=== PATIENT | female | born 1960 | race Caucasian/White ===

== ENCOUNTER → 2023-07-27 13:00 | Outpatient (REF) | payer BC, SELFPAY | LOC: WDC 13:00 | PROVIDERS: ATTENDING PHYSICIAN Family Medicine | DX: Z12.31 Encounter for screening mammogram for malignant neoplasm of breast (principal) | CPT/HCPCS: 77063; 77067 ==

== ENCOUNTER → 2023-08-01 16:33 | Outpatient (REF) | payer BC, SELFPAY | LOC: RAD 16:33 | PROVIDERS: ATTENDING PHYSICIAN Physician Assistant Medical | DX: R05.3 Chronic cough (principal); R06.2 Wheezing | CPT/HCPCS: 71046 ==

== ENCOUNTER → 2023-09-14 14:54 | Outpatient (REF) | payer BC, SELFPAY | LOC: WDC 14:54 | PROVIDERS: ATTENDING PHYSICIAN Surgery; FAMILY PHYSICIAN Family Medicine | DX: N63.20 Unspecified lump in the left breast, unspecified quadrant (principal) | CPT/HCPCS: 76642 ==

== ENCOUNTER → 2024-10-10 13:32 | Outpatient (REF) | payer BC, SELFPAY | LOC: WDC 13:32 | PROVIDERS: ATTENDING PHYSICIAN Obstetrics & Gynecology Gynecology; FAMILY PHYSICIAN Family Medicine | DX: Z78.0 Asymptomatic menopausal state (principal); Z12.31 Encounter for screening mammogram for malignant neoplasm of breast | CPT/HCPCS: 77063; 77067; 77080 ==

== ENCOUNTER → 2024-11-04 15:26 | Outpatient (REF) | payer BC, SELFPAY | LOC: RAD 15:26 | PROVIDERS: ATTENDING PHYSICIAN Nurse Practitioner Family | DX: J18.0 Bronchopneumonia, unspecified organism (principal) | CPT/HCPCS: 71046 ==

== ENCOUNTER 2025-04-05 11:06 | Emergency (ER) | payer BC, SELFPAY ==
[2025-04-05 11:08] VITALS: BP 120/87
[2025-04-05] MEDS: DUONEB 3 ML INH (11:22)
[2025-04-05] MEDS: VENTOLIN NEBULES 7.5 MG INH (11:23)
--- NOTE | 2025-04-05 11:25 | ED.GENMED ---
History of Present Illness
General
Chief Complaint: Breathing Problem
Source: patient and spouse
Exam Limitations: none
Time Seen by Provider: 04/05/25 11:13
History of Present Illness
History of Present Illness:
64-year-old female with increased shortness of breath over the last few weeks. Has been on 2 courses of antibiotics and steroids. Currently on 20 mg of prednisone. Increased shortness of breath overnight. No pleuritic chest pain. No hemoptysis.
No fever. Symptoms are moderate to severe in nature
Past History
Past History
ED Past Medical History: HTN and Hypercholesterolemia
ED Past Surgical History: Other (Lipoma removal)
Social History
Tobacco: Smoker
Alcohol: Occasional
Drug: None
Personal:
Living: with family
Review of Systems
Review of Systems
All Other Systems: Not applicable
Constitutional: Denies fever
Respiratory: Denies hemoptysis
Cardiac: Denies chest pain or syncope
Phy Exam
Physical Exam
Physical Exam:
GENERAL: Alert and oriented. Mildly anxious. Moderately tachypneic at rest
EYE: Orbits normal.
NECK: Supple, no significant adenopathy.
ENT: Pharynx without erythema
CARDIAC: Tachycardic and regular no murmur
LUNGS: Moderate tachypnea. Mildly to moderately breathless. Diffuse expiratory wheezing throughout. Breath sounds are equal. No rales.
ABDOMEN: Soft, without focal tenderness or distention
NEUROLOGICAL: Alert and oriented , grossly non-focal
SKIN: Warm and dry, no rash or lesion, no discoloration, skin intact.
MUSCULOSKELETAL: No edema,no deformity.Good color
PSYCH: Normal and appropriate interaction.
Scores
Heart Failure Risk
Heart Failure Risk Score: Not Applicable
Course
Orders/Labs/Results
Orders:
Orders
04/05/25 11:14
Electrocardiogram (*1) Stat
Reason for Study: Other
Other Reason for Exam: chest pain
Cardiac Monitoring- Treatment ONCE
EKG- Treatment ONCE
IV Insert/Care/Rem.- Treatment PRN
Pulse Ox/cont/shift [RESP] Stat
Quantity: 1
04/05/25 11:19
IV Insert/Care/Rem.- Treatment PRN
Albuterol Sulfate [Ventolin Nebules] 7.5 mg INH R NOW STA
Dexamethasone Sod Phosphate [Decadron] 10 mg IV NOW STA
Ipratropium/Albuterol Sulfate [Duoneb] 3 ml INH R NOW STA
CXR Port [CR Chest Portable - 1 View] Urgent
Comment:
Reason For Exam: sob
Reason Study Needs to be Portable: Patient Unstable
04/05/25 11:34
Basic Metabolic Panel Urgent
COVID-19 Antigen Urgent
Source: Nasal Swab
Complete Blood Count/With Diff Urgent
NT-proBNP Urgent
Troponin I Urgent
Influenza A+B Rapid Molecular Urgent
FRANCISCO Source: Nasal Swab
Specimen Description:
Abnormal Lab Results
04/05/25
11:34
Absolute Monos (auto) 0.7 H 10^3/uL
(0.1-0.6)
Absolute Eos (auto) 1.9 H 10^3/uL
(0-0.7)
Eosinophils % 17.3 H %
(0-6)
Calcium 10.3 H mg/dl
(8.4-10.2)
04/05/25 11:34
04/05/25 11:34
Vital Signs
Initial and Last Documented VS:
Initial Vital Signs
Temp Pulse Resp BP Pulse Ox
98.1 F 111 22 120/87 93
04/05/25 11:08 04/05/25 11:08 04/05/25 11:08 04/05/25 11:08 04/05/25 11:08
Last Documented Vital Signs
Temp Pulse Resp BP Pulse Ox
99.0 F 107 22 118/84 94
04/05/25 16:01 04/05/25 15:45 04/05/25 15:45 04/05/25 15:00 04/05/25 15:45
MDM/Problems Addressed
Differential Diagnosis Includes:
Respiratory distress.
*Radiology
Radiology exam reviewed: radiology read reviewed (No acute findings)
*Pulse Oximetry
SaO2: 93
Oxygen Mode of Delivery: Room air
Patient hypoxic: no
*EKG
Interpreted by ED Provider?: Yes
Interpretation: abnormal
Comparison EKG: changes noted
Heart Rate: 101
Rate: tachycardiac
Rhythm: sinus
[place]: normal axis
Interval: normal interval
QRS Pattern: normal QRS
Ischemia: non-specific ST changes
*Credit Review Officer Interpretation
Rate: normal
Interpretation: normal
Heart Rate: 94
*Critical Care Note
Total Time (30-74mins, 75-104mins- exclusive of procedures): Not Applicable
Data Reviewed
Review of Other/Old Records Reveals: Labs, Records and Radiology Studies
Update Note
Update Note:
1140... Patient rechecked and actually doing much better. Wheezing much improved. Continues nebulizer
1615... Patient rechecked multiple times. On current recheck she remains and appears well. She is in 0 respiratory distress. She is not tachypneic. She is not pursed lip breathing. Her speech is normal. Lungs actually sound relatively clear.
No retractions. Pulse ox 93 to 97%. Discussed admission versus outpatient management. Offered admission although outpatient management is reasonable. Patient will be discharged to follow-up
ED Attending Note
-
Portions of this chart may have been created with voice recognition software.� Occasional wrong word or��sound alike� substitutions may have occurred due to the inherent limitations of voice recognition software.
Discharge Plan
Departure
Patient Disposition: Home (Routine Discharge)
Date of Disposition: 04/05/25
Time of Disposition: 16:14
Patient with high blood pressure during this ER visit?: Yes
Discharge Problem:
Respiratory distress, Reactive airway disease
Instructions: Shortness of Breath (Dyspnea) (DC), BLOOD PRESSURE
Prescriptions:
New
prednisone 10 mg tablet
10 mg PO DAILY Qty: 30 0RF
Rx Instructions:
5 tablets day 1. Then 1 less tablet every third day until gone
Asmanex Twisthaler 110 mcg/ actuation (30) aerosol powdr breath activated
2 inh inhalation DAILY Qty: 1 0RF
No Action
multivitamin [Daily Multiple] 1 EACH tablet
1 ea PO DAILY
ascorbic acid (vitamin C) [Vitamin C] 500 MG tablet
500 mg PO DAILY
calcium carbonate [Antacid (calcium carbonate)] 1 TABLET tablet,chewable
2 tab PO Q4HPRN PRN (Reason: pain)
Patient Comments:
took within the hr prior to coming in hospital today
venlafaxine 50 MG tablet
150 mg PO DAILY
bismuth subsalicylate [Ozora Bismuth] 1 TABLET tablet,chewable
2 tab PO PRN PRN (Reason: pain)
Patient Comments:
took within the hr prior to coming in hospital today
Gas-X
1 tab PO PRN PRN (Reason: pain)
Patient Comments:
took within the hr prior to coming in hospital today
Ibuprofen
2 tab PO PRN PRN (Reason: CRABTREE)
Klonopin:
PO HS
Losartan
0.5 mg PO QPM
Melatonin
HS
Metformin Hcl
2 tab PO BID
Patient Comments:
Pt does not know doses of most meds
Simvastatin
PO QPM
doxycycline hyclate 100 MG capsule
100 mg PO Q12 Qty: 14 0RF
Referrals:
Alejandro Espinoza MD [Family Provider, [facility]]
Norman Hale MD [Active, Pulmonary Medicine] - Next open appointment
Activity Restrictions/Additional Instructions:
Your prescriptions were sent to your pharmacy
Continue your albuterol inhaler every 3-4 hours
Close follow-up with your primary physician
I gave you the name of a forest officer to follow-up
Return immediately with any concerning or progression of symptoms
Interventions
Interventions:
*Risk Screen - Suicide Last Done: 04/05/25 11:08
*General Assessment Last Done: 04/05/25 11:38
*Neglect/Abuse Screening Last Done: 04/05/25 11:08
*ED- Fall Risk Assessment Last Done: 04/05/25 11:38
*ED COVID-19 Vaccine History Last Done: 04/05/25 11:38
*ED Influenza Vaccine History Last Done: 04/05/25 11:38
*Nursing Disposition Last Done: 04/05/25 16:23
ED- Cardiac Assessment Last Done: 04/05/25 11:41
ED- Pulmonary Assessment Last Done: 04/05/25 11:41
Discharge Date and Time
Discharge Date/Time: 04/05/25 16:24
Print Language: [id number]
[2025-04-05 11:26] VITALS: BP 138/93
[2025-04-05] MEDS: DECADRON 10 MG IV (11:31)
[2025-04-05 11:36] VITALS: BMI 25.4
[2025-04-05 11:48] LABS: Hematocrit 41.4 % (37.0-47.0); Hemoglobin 13.9 g/dL (12.0-16.0); Mean Corp Hgb Conc. 33.6 g/dL (33.0-37.0); Mean Corpuscular Volume 88.8 fL (81.0-99.0); Nucleated Red Blood Cells % 0 %; Platelet Count 386 10^3/uL (130-400); Red Cell Dist. Width 12.4 % (11.5-14.5)
[2025-04-05 11:59] LABS: Blood Urea Nitrogen 14 mg/dl (7-17); Calcium 10.3 mg/dl (8.4-10.2); Carbon Dioxide 26 mmol/L (22-30); Chloride 103 mmol/L (98-107); Estimated Creatinine Clearance 72 ml/min; Glucose 93 mg/dl (70-99); Potassium 4.4 mmol/L (3.5-5.1); Sodium 139 mmol/L (135-145); eGFR > 60.00
[2025-04-05 12:00] VITALS: BP 118/87
[2025-04-05 12:06] LABS: COVID-19 Antigen Negative (Negative)
[2025-04-05 12:10] LABS: Troponin I < 0.012 ng/ml
[2025-04-05 13:00] VITALS: BP 125/88
[2025-04-05 14:16] VITALS: BP 125/83
[2025-04-05 15:00] VITALS: BP 118/84
== END 2025-04-05 16:24 | disposition home or self-care (01) ==
LOC: EMR 11:06
PROVIDERS: EMERGENCY PHYSICIAN Emergency Medicine; FAMILY PHYSICIAN Family Medicine
DX: J45.909 Unspecified asthma, uncomplicated (principal); R06.03 Acute respiratory distress; E78.00 Pure hypercholesterolemia, unspecified; I10 Essential (primary) hypertension; F17.200 Nicotine dependence, unspecified, uncomplicated; Z11.52 Encounter for screening for COVID-19
CPT/HCPCS: 96374; 94640; 99285; 71045; 80048; 83880; 84484; 85025; 87502; 87811; 93005